=== PATIENT | male | born 1985 | race Caucasian/White ===

== ENCOUNTER 2021-08-25 00:40 | Emergency (ER) | payer SELFPAY ==
[~2021-08-25] VITALS: Ht 180.3 cm; Wt 90.7 kg
[~2021-08-25 00:40] MED LIST: HYDR-34 PO
[2021-08-25 01:00] VITALS: BP 146/91
[2021-08-25] MEDS ORDERED: TETRACAINE 0.5% OPHTH SOLN 4 ML BTL (SINGLE DOSE ONLY) OU ONE (01:15)
[2021-08-25] MEDS ORDERED: BSS 15 ML IR ONE (01:15)
[2021-08-25] MEDS ORDERED: FLUORESCEIN (FLUOR-I-STRIPS) 1 MG STRP OU ONE (01:15)
--- NOTE | 2021-08-25 02:44 | ED EENT ---
History of Present Illness General Chief Complaint: Eye Problems Stated Complaint: METAL IN LEFT EYE Nursing Triage Note: PT AMBULATORY TO ROOM WITH PT GIRLFRIEND. PT STATES HE WAS GRINDING A PIECE OF METAL SIDING TWO DAYS AGO AND A PIECE OF METAL HIT HIS LEFT EYE. PT STATES THE PAIN HAS NOT SUBSIDED SINCE THEN AND HE FEELS LIKE THE METAL IS STILL IN HIS EYE Source: patient Exam Limitations: no limitations History of Present Illness Date Seen by Provider: Aug 25, 2021 Time Seen by Provider: 01:04 Initial Comments This 35-year-old gentleman presents to the emergency room with complaints of left eye pain and sensation of foreign body presumably from metallic foreign body after grinding metal 2 days ago. He states initially it just felt like he had a loose particle floating around, but then symptoms became worse and more irritating. Vision is unaffected. He does have a particle grossly visible on the lateral aspect of the left corneal rim. Allergies and Home Medications Allergies Uncoded Allergies: GENERAL ANESTHESIA (Adverse Reaction, Severe, "ALMOST ", 11/07/09) Patient Home Medication List Home Medication List Reviewed: Yes Hydrocodone Bit/Acetaminophen (Vicodin Es 7.5 Mg/325 Mg) 1 Ea Tablet, 1 TAB PO Q4H Prescribed by: BARRY FRANKS on 11/07/09 2556 Review of Systems Review of Systems Constitutional: no symptoms reported Eyes: See HPI Ears: No Symptoms Reported Nose: no symptoms reported Mouth: no symptoms reported Skin: no symptoms reported Neurological: No Symptoms Reported Past Zamxalp-Uivqan-Aysjfz Hx Patient Social History Tobacco Use?: Yes Tobacco type used: Cigarettes Smoking Status: Current Everyday Smoker Use of E-Cig and/or Vaping dev: No Substance use?: No Alcohol Use?: No Immunizations Up To Date Influenza Vaccine Up-to-Date: No; Not Current COVID19 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 oz. kg; 27.00 BMI Method: General Appearance: WD/WN, no apparent distress Eyes: right eye other (There is a foreign body lodged on the lateral edge of the left cornea with apparent ulcerating ring. 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 After tetracaine was applied and fluorescein exam was performed, I attempted to lift the foreign body with cotton swab. This was unsuccessful. We additionally tried irrigation which was also unsuccessful. Magnet would not lift the foreign body. Finally, I attempted lifting it with hypodermic needle which was also unsuccessful. The foreign body was firmly embedded. Patient was referred to [facility] for further treatment. Erythromycin ointment was applied before discharge. A bottle of balanced saline with a few drops of tetricaine was also dispensed. Departure Impression Primary Impression: Foreign body of cornea Qualified Codes: T15.02XA - Foreign body in cornea, left eye, initial encounter Disposition: HOME, SELF-CARE Condition: Improved Departure-Patient Inst. Decision time for Depature: 02:42 Referrals: LLOYD ZHU OD,LOCAL PHYSICIAN (PCP) Primary Care Physician Patient Instructions: Foreign Body in Eye ED Add. Discharge Instructions: Present to [facility] at 8:00 this morning to have the object removed from you eye. You may use the eyedrops mixed with anesthetic but do not exceed 1 or 2 drops per hour. You may additionally use artificial tears [id number]. If you have not already completed a financial assistance specialist packet with the hospital, please pecan picker the application from the registration desk. Call with questions or concerns. Return to the ER if you have worsening symptoms. All discharge instructions reviewed with patient and/or family. Voiced understanding. Copy Copies To 1: COLTON PIMENTEL OD, JOSHUA T MD Aug 25, 2021 02:44
[2021-08-25] MEDS ORDERED: ERYTHROMYCIN OPHTH OINT 1 GM (SINGLE USE) TUBE ONE (02:55)
[2021-08-25] MEDS ORDERED: ERYTHROMYCIN OPHTH OINT 1 GM (SINGLE USE) TUBE OP ONE (06:00)
== END 2021-08-25 03:07 | disposition home or self-care (01) ==
LOC: EDUNIT# 00:40 → ER 00:45
DX: T15.02XA Foreign body in cornea, left eye, initial encounter (principal); F17.210 Nicotine dependence, cigarettes, uncomplicated
CPT/HCPCS: 99282

== ENCOUNTER 2022-12-17 19:40 | Emergency (ER) | payer SELFPAY ==
[~2022-12-17] VITALS: Ht 180.3 cm; Wt 95.2 kg
--- NOTE | 2022-12-17 20:41 | ED Integumentary General ---
General Chief Complaint: Skin/Wound Problems Stated Complaint: ABSCESS/POSS SPIDER BITE ON BOTTOM Nursing Triage Note: PT AMB TO RM 9 WITH CC OF "SPIDER BITE" TO [place] SINCE 12/14. UNK FEVER. PT STATES HAS BEEN TAKING CARE OF IT HIMSELF BUT STATES PAIN HAS INCREASED. Source: patient Exam Limitations: no limitations History of Present Illness Date Seen by Provider: Dec 17, 2022 Time Seen by Provider: 20:34 Initial Comments 37-year-old male presents to the ER with reports of a possible spider bite to his right gluteus. States that he first noticed it on , 12/14/2022. Reports he has been using Prid. Denies fevers. Allergies and Home Medications Allergies Uncoded Allergies: GENERAL ANESTHESIA (Adverse Reaction, Severe, "ALMOST ", 11/07/09) Patient Home Medication List Home Medication List Reviewed: Yes Hydrocodone Bit/Acetaminophen (Vicodin Es 7.5 Mg/325 Mg) 1 Ea Tablet, 1 TAB PO Q4H Prescribed by: BARRY FRANKS on 11/07/091825 Sulfamethoxazole/Trimethoprim (Bactrim Ds Tablet) 1 Each Tablet, 1 EACH PO BID Prescribed by: Jeannette Hartmann on 12/17/222044 Review of Systems Review of Systems Constitutional: see HPI Skin: see HPI Past Oyhjvkl-Zsthsm-Cmjurg Hx Patient Social History Tobacco Use?: Yes Tobacco type used: Cigarettes Smoking Status: Current Everyday Smoker Substance use?: No Alcohol Use?: No Past Medical History Surgeries: No Respiratory: No Cardiac: No Neurological: No Genitourinary: No Gastrointestinal: No Musculoskeletal: No Endocrine: No Cancer: No Psychosocial: No Physical Exam Vital Signs Vital Signs - First Documented 12/17/22 20:34 Pulse 98 Resp 16 B/P (MAP) 110/78 (89) Pulse Ox 99 O2 Delivery Room Air Capillary Refill : Less Than 3 Seconds General Appearance: WD/WN, no apparent distress Neck: supple, normal inspection Cardiovascular: regular rate, rhythm Respiratory: lungs clear, normal breath sounds, no respiratory distress, no accessory muscle use Extremities: normal range of motion, normal inspection Neurologic/Psychiatric: alert, normal mood/affect Skin: normal color, warm/dry Skin Problem Location: other (Right buttock) Skin Problem Character: abscess (Large area of induration and erythema, no area of fluctuation. Open area to the center with purulent drainage) Progress/Results/Core Measures Results/Orders My Orders Orders - JEANNETTE BOND APRN Sulfamethoxazole/Tmp Ds Tablet (Sulfamet (12/17/22 20:45) Medications Given in ED Current Medications Medications Dose Ordered Sig/Anthony Route Start Time Stop Time Status Last Admin Dose Admin Trimethoprim/ Sulfamethoxazole 1 ea ONCE ONCE PO 12/17/22 20:45 12/17/22 20:46 DC 12/17/22 20:53 1 EA Vital Signs/I&O 12/17/22 12/17/22 20:34 20:54 Pulse 98 98 Resp 16 16 B/P (MAP) 110/78 (89) 110/78 Pulse Ox 99 99 O2 Delivery Room Air Room Air Blood Pressure Mean: 89 Progress Progress Note : Progress Note Patient seen and evaluated, resting comfortably in bed, no acute distress. Large area of erythema and induration, no area of fluctuation, center has an open area with amount of purulent drainage. Ultrasound used to assess for abscess under the skin, no area of drainable abscess noted. Will give patient first dose of Bactrim now and discharge with prescription for Bactrim. Patient instructed to return here or go to the [facility] walk-in clinic in 2 days to have the wound reevaluated. Patient is stable for discharge. Discharge instructions and return precautions provided. Departure Impression Primary Impression: Abscess Disposition: 01 HOME, SELF-CARE Condition: Stable Departure-Patient Inst. Decision time for Depature: 20:44 Referrals: NO,LOCAL PHYSICIAN (PCP/Family) Primary Care Physician Patient Instructions: Skin Abscess Add. Discharge Instructions: Complete full course of antibiotic as prescribed. Return here or go to the [facility] walk-in clinic in 2 days to have the wound reevaluated. Return if you develop a fever, body aches, or any other new, concerning, or worsening symptoms. All discharge instructions reviewed with patient and/or family. Voiced understanding. Scripts Sulfamethoxazole/Trimethoprim (Bactrim Ds Tablet) 1 Each Tablet 1 EACH PO BID for 10 Days, #20 TAB 0 Refills Prov: JEANNETTE BOND APRN 12/17/22 JEANNETTE BOND APRN Dec 17, 2022 20:41
[2022-12-17] MEDS ORDERED: SULF1TAB38 PO (20:45)
[2022-12-17] MEDS ORDERED: Sulfamethoxazole/Trimethoprim DS TABLET PO ONE (20:45)
[2022-12-17 20:54] VITALS: BP 110/78
== END 2022-12-17 20:54 | disposition home or self-care (01) ==
LOC: EDUNIT# 19:40 → ER 19:43
DX: L02.31 Cutaneous abscess of buttock (principal); F17.210 Nicotine dependence, cigarettes, uncomplicated
CPT/HCPCS: 99283